=== PATIENT | female | born 1985 | race Caucasian/White ===

== ENCOUNTER → 2020-11-17 14:10 | Outpatient (CLI) | payer BC, SELFPAY ==
[2017-04-11 11:04] VITALS: BMI 21.2
[2020-11-23 17:15] LABS: HPV APTIMA, High Risk Negative (Negative)
== END ==
PROVIDERS: Visit Provider Student in an Organized Health Care Education/Training Program
DX: Z12.4 Encounter for screening for malignant neoplasm of cervix (principal)
CPT/HCPCS: 87624; 88175; G0145

== ENCOUNTER 2021-02-15 12:06 | Emergency (ER) | payer BC, SELFPAY ==
[2021-02-15 12:07] VITALS: BP 91/41; PULSE 53; RESP 16; TEMP 35.7; O2SAT 98; BMI 22.8
[2021-02-15 12:08] VITALS: BP 91/41; PULSE 53; RESP 16; TEMP 36.1; O2SAT 98
--- NOTE | 2021-02-15 12:22 | EX.ED.DYSGE1 ---
HPI History of Present Illness Chief Complaint: Nausea/Vomiting Informant: patient Narrative Narrative: Is a 35-year-old female who presents with nausea vomiting and abdominal pain. Patient states that she ate some potential bad food last night called [employer]. Contains kidney beans and sausage. She states that she had a rough night sleeping and this morning has been unable to stop vomiting. No diarrhea. No fevers. No blood in the emesis. Patient notes a lower mid abdominal pain that seems to radiate to her back. PFSH [facility] Medical History (Updated 02/15/21 @ 14:[address] Ethan Washington, DO) Anxiety Depression no medical history Home Medications lactobacillus combination no.4 [Probiotic] 3,000 mmu cells PO DAILY 02/15/21 [History Last Taken Unknown] ondansetron 4 mg PO Q6H PRN PRN #15 tab 02/15/21 [Rx Last Taken Unknown] oxycodone-acetaminophen 1 tab PO Q6H PRN PRN 3 Days #12 tablet 02/15/21 [Rx Last Taken Unknown] sertraline 25 mg PO DAILY 02/15/21 [History Last Taken Unknown] Allergy/AdvReac Type Severity Reaction Status Date / Time iodine AdvReac Hives Verified 02/15/21 12:08 no surgical history (Noncontributory) Social History Smoking Status: Never smoker ROS ROS ED Constitutional Constitutional ED: Denies chills or weight loss Eyes Eyes: Denies change in vision or diplopia ENT ENT ED: Denies ear pain, rhinorrhea or sore throat Cardiovascular Cardiovascular: Denies chest pain, orthopnea, palpitations or racing heartbeat Respiratory/Chest Respiratory/Chest: Denies cough, dyspnea or orthopnea Gastrointestinal Gastrointestinal: Reports nausea and vomiting; Denies abdominal pain or diarrhea Genitourinary Genitourinary ED: Denies dysuria, hematuria or urinary frequency Musculoskeletal Musculoskeletal: Denies arthralgias or myalgias Integumentary Denies abscess or rash Neurologic Neurologic: Denies headache(s) or weakness Psychiatric Psychiatric: Denies anxiety, depression, suicidal ideation or suicidal thoughts Endocrine Endocrinology: Denies polydipsia, polyphagia or polyuria Allergic/Immunologic Allergic/Immunologic ED: Denies mouth swelling, tongue swelling or urticaria EXAM Physical Exam Const Vital Signs: 02/15/21 12:07 02/15/21 12:08 02/15/21 13:41 Temperature 96.2 F L 97.0 F L Temperature Source Temporal Oral Pulse Rate 53 L 53 L 71 Respiratory Rate 16 16 16 Blood Pressure 91/41 L 91/41 L 105/78 Blood Pressure Mean 57 57 87 Pulse Ox 98 98 99 Oxygen Delivery Method Room Air Room Air Room Air Positive well nourished and well developed General Appearance ED: well developed HEENT Reports normocephalic, head/scalp atraumatic and moist mucous membranes Eyes PERRL and EOMs intact bilaterally Neck no lymphadenopathy, supple and no JVD Resp normal respiratory effort and clear to auscultation bilaterally Cardio regular rate, regular rhythm and no murmurs GI normal to inspection, nondistended, normoactive bowel sounds GI Narrative: Mild tenderness to palpation in the suprapubic region to the level of the umbilicus. Palpation: soft and tender; Negative for rebound tenderness present Back/Spine no CVA tenderness and normal ROM Extremity normal to inspection General Extremety ED: Negative for edema General Extremity: Negative for edema Neuro oriented x3 and CN's II-XII intact bilaterally Sensorium / Orientation: alert Motor Exam: strength 5/5 throughout Psych mental status grossly normal Mood & Affect: Negative for depressed or tearful Skin no rashes or lesions noted and no wounds MDM MDM MDM Narrative Medical decision making narrative: Patient received Zofran and IV fluids. Basic blood work is normal. Urinalysis shows no overt infection. Later gave her Toradol and later Dilaudid. CT was read by radiology and reviewed by me. CT of the abdomen pelvis not show anything acute. Patient denies any vaginal discharge or recent vaginal infections. I do not see an ovarian cyst to suspect torsion. At this point patient be discharged home with prescriptions for Bentyl and Zofran. Return if worsening or concerns Lab Data Attestation: I reviewed the patient's lab results. Labs: Laboratory Results - last 24 hr 02/15/21 02/15/21 02/15/21 12:21 12:21 12:24 WBC 9.8 RBC 4.59 Hgb 14.4 Hct 43.8 MCV 95.4 MCH 31.4 MCHC 32.9 RDW Std Deviation 43.8 RDW Coeff of Smooth 12.4 Plt Count 281 MPV 11.0 Immature Gran % (Auto) 0.400 Neut % (Auto) 80.9 H Lymph % (Auto) 13.0 L [place] % (Auto) 4.8 Eos % (Auto) 0.4 Baso % (Auto) 0.5 Absolute Neuts (auto) 7.9 H Absolute Lymphs (auto) 1.28 Nucleated RBC % 0 Sodium 138 Potassium 3.8 Chloride 106 Carbon Dioxide 26.0 Anion Gap 6 BUN 14 Creatinine 1.06 H Estim Creat Clear Calc 74.73 Est GFR (MDRD) Af Amer 76 Est GFR (MDRD) Non-Af 62 BUN/Creatinine Ratio 13.2 Glucose 134 H Calcium 9.1 Total Bilirubin 0.50 AST 11 L ALT 17 Alkaline Phosphatase 74 Total Protein 7.3 Albumin 3.9 Globulin 3.4 Albumin/Globulin Ratio 1.1 Lipase 73 Urine Color Yellow Urine Clarity Sl. Cloudy Urine pH 5.0 Ur Specific [place] 1.025 Urine Protein Negative Urine Glucose (UA) Normal Urine Ketones 15 H Urine Occult Blood 50 H Urine Nitrite Negative Urine Bilirubin Negative Urine Urobilinogen Normal Ur Leukocyte Esterase 25 H Urine RBC 0-5 SEEN Urine WBC 0-5 SEEN Ur Squamous Epith Cells 0-5 SEEN Urine Bacteria 1+ Urine Mucus 1+ Urine Test Negative Radiography Diagnostic Testing: Radiology Impression Abdomen/Pelvis CT 02/15/21 13:12 IMPRESSION: Normal unenhanced CT of the abdomen and pelvis. Electronically Signed: Jack Miller MD at 13:53 EDT , Service support , Discharge Plan Triage Chief Complaint: Nausea/Vomiting ED Provider: Ethan Washington Dx/Rx/DC Orders Clinical Impression: Vomiting, Abdominal pain, acute Instructions: ED Abdominal Pain Unkn Cause Fem Prescriptions: New oxycodone-acetaminophen [oxycodone-acetaminophen] 1 TABLET tablet 1 tab PO Q6H PRN PRN (Reason: Pain) 3 Days Qty: 12 RF: 0 ondansetron [ondansetron] 4 MG tablet 4 mg PO Q6H PRN PRN (Reason: Nausea) Qty: 15 RF: 0 No Action sertraline 25 mg Tablet 25 mg PO DAILY RF: 0 Probiotic 3 billion cell Capsule 3,000 mmu cells PO DAILY RF: 0 Primary Care Provider: Isac Covarrubias Referrals: Isac Covarrubias MD [Primary Care Provider] - 1 Day for another exam Activity Restrictions/Additional Instructions: If symptoms are worsening or you are not improving in the next 24 hours please return to the emergency department for repeat examination or see your primary care physician for repeat exam. Disposition Disposition: Home, self care
[2021-02-15 12:34] LABS: Absolute Lymphocyte Count 1.28 X10^3/uL (0.83-4.51); Absolute Neutrophil Count 7.9 X10^3/uL (2.0-7.7); Basophil# 0.05 X10^3/uL; Basophil% 0.5 % (0-1); Eosinophil# 0.04 X10^3/uL; Eosinophils% 0.4 % (0-5); Hematocrit 43.8 % (37-47); Hemoglobin 14.4 g/dL (12.0-15.0); Lymphocyte # 1.28 X10^3/ul (0.83-4.51); Mean Corp Hgb Conc 32.9 g/dL (32-36); Mean Corpuscular Hgb 31.4 pg (27.0-32.0); Mean Corpuscular Volume 95.4 fL (81-99); Monocyte# 0.47 X10^3/uL; Monocyte% 4.8 % (0-10); NRBC Flagged by Analyzer 0 % (0-5); Neutrophil # 7.93 X10^3/uL (2.7-7.7); Neutrophil % 80.9 % (47-70); Platelet Count 281 K/mm3 (150-450); RBC Distribution Width CV 12.4 % (11.6-14.6); RBC Distribution Width SD 43.8 fl (35.1-43.9); Red Blood Count 4.59 M/mm3 (4.2-5.4); White Blood Count 9.8 K/mm3 (4.4-11.0)
[2021-02-15] MEDS: Ondansetron 4 MG/2 ML Vial IV ×2 (12:40→13:35)
[2021-02-15] MEDS: 0.9% Normal Saline 1,000 ML 1000 ML IV (12:40)
[2021-02-15 12:47] LABS: Color, Urine Yellow (Yellow); Glucose, Dipstick Normal (Normal); Ketone-Dipstick 15 mg/dl (Negative); Leukocyte Esterase-Dipstick 25 /ul (Negative); Nitrite-Dipstick Negative (Negative); Occult Blood-Urine 50 /ul (Negative); Protein-Dipstick Negative (Negative); Specific Gravity, Urine 1.025 (1.002-1.030); Urine Bilirubin Dipstick Negative (Negative); Urine Clarity Sl. Cloudy (Clear); Urine Urobilinogen Normal (Normal)
[2021-02-15 12:49] LABS: ALB/GLOB Ratio 1.1 RATIO (0.9-2.4); AST(SGOT) 11 U/L (15-37); Alanine Aminotransfer ALT/SGPT 17 U/L (13-56); Albumin, Serum 3.9 g/dL (3.2-5.0); Alkaline Phosphatase 74 U/L (45-117); Anion Gap 6 (5-15); BUN 14 mg/dL (7-18); BUN/Creat Ratio 13.2 RATIO (10-20); Calcium,Total 9.1 mg/dL (8.5-10.1); Chloride 106 mmol/L (98-107); Creatinine, Serum 1.06 mg/dL (0.55-1.02); EST Glomerular Filtration Rate 62 mL/min (>60); Est Glom Filt Rate - Afr Amer 76 mL/min (>60); Estimated Creatinine Clearance 74.73 ml/min; Globulin 3.4 g/dL (2.2-4.2); Glucose 134 mg/dL (74-106); Lipase 73 U/L (73-393); Potassium 3.8 mmol/L (3.5-5.1); Protein, Total 7.3 g/dL (6.4-8.2); Sodium Level 138 mmol/L (136-145)
[2021-02-15 12:54] LABS: Bacteria 1+ /hpf (None Seen); Internal QC Validated? YES +Cl - CLEAR BKGD; Mucous, Urine 1+ /hpf (<or=2+); Red Blood Cells-Urine 0-5 SEEN /hpf (0-5); Squamous Epithelial Cells - UA 0-5 SEEN /hpf (5-10); White Blood Cells 0-5 SEEN /hpf (0-5)
[2021-02-15 12:55] LABS: Pregnancy, Urine Negative Negative
--- NOTE | 2021-02-15 13:12 | CT_ITS ---
STUDY: CT ABDOMEN AND PELVIS WITHOUT CONTRAST REASON FOR EXAM: Female, 35 years old. Abdominal pain. Nausea and vomiting. RADIATION DOSAGE (If Supplied By Facility): CTDIvol = ( 7.40 ) mGy, DLP = ( 356.96 ) mGycm TECHNIQUE: Transaxial images were obtained from the dome of the diaphragm to the symphysis pubis without oral contrast, and without intravenous contrast. Sagittal and coronal images were reconstructed. Individualized dose optimization techniques were used for this CT. COMPARISON: None. FINDINGS: There is evidence of a pectus excavatum deformity. The visualized portions of the heart are within normal limits. Normal liver. Normal gallbladder and extrahepatic biliary system. Normal spleen. Normal pancreas. Normal bilateral adrenal glands. Normal right kidney. Normal left kidney. Normal visualized stomach. Normal small intestine. Normal colon. The appendix is visualized and appears normal. Normal abdominal aorta. Normal inferior vena cava. Normal retroperitoneum. Normal urinary bladder. There is a 1.6 cm follicle in the right ovary. Phleboliths are seen in the pelvis. There is a small umbilical hernia containing fat. Normal osseous structures. CT/Abdomen/Pelvis without Cont IMPRESSION: Normal unenhanced CT of the abdomen and pelvis. Electronically Signed: Jack Miller MD at 13:53 EDT , Service support ,
[2021-02-15] MEDS: Ketorolac 30 MG/ML Syringe IV (13:23)
[2021-02-15] MEDS: 0.9% Normal Saline 1,000 ML 250 ML IV (13:35)
[2021-02-15 13:41] VITALS: BP 105/78; PULSE 71; RESP 16; O2SAT 99
[2021-02-15] MEDS: HYDROmorphone 1 MG/ML Syringe IV (13:56)
--- NOTE | 2021-02-15 14:05 | ED.RN ---
CALLED [facility] TO UPDATE ON PT'S STATUS.
[2021-02-15 14:40] VITALS: PULSE 66; RESP 17; O2SAT 99
== END 2021-02-15 14:41 | disposition home or self-care (01) ==
PROVIDERS: Emergency Provider Emergency Medicine
DX: R11.2 Nausea with vomiting, unspecified (principal); R10.9 Unspecified abdominal pain; F32.9 Major depressive disorder, single episode, unspecified
CPT/HCPCS: 74176; 80053; 81001; 81025; 83690; 85025; 96374; 96375; 96376; 99283; J7030; A4216; J2405